=== PATIENT | male | born 1960 | race Caucasian/White ===

== ENCOUNTER 2023-02-02 15:52 | Inpatient (IN) | payer OTHER ==
[~2023-02-02] VITALS: Ht 180 cm; Wt 120.0 kg
[2023-02-02 16:19] LABS: ALBUMIN 4.3 GM/DL (3.2-4.5); BASOPHILS % (AUTO) 1 % (0-10); EOSINOPHILS # (AUTO) 0.1 10^3/uL (0.0-0.3); EOSINOPHILS % (AUTO) 2 % (0-10); HEMATOCRIT 47 % (40-54); HEMOGLOBIN 16.2 g/dL (13.3-17.7); LYMPHOCYTES # (AUTO) 1.5 10^3/uL (1.0-4.0); LYMPHOCYTES % (AUTO) 21 % (12-44); MEAN CORPUSCULAR HEMOGLOBIN 31 pg (25-34); MEAN CORPUSCULAR HGB CONC 34 g/dL (32-36); MEAN CORPUSCULAR VOLUME 90 fL (80-99); MEAN PLATELET VOLUME 9.8 fL (9.0-12.2); MONOCYTES # (AUTO) 0.8 10^3/uL (0.0-1.0); MONOCYTES % (AUTO) 12 % (0-12); NEUTROPHILS # (AUTO) 4.7 10^3/uL (1.8-7.8); NEUTROPHILS % (AUTO) 65 % (42-75); PLATELET COUNT 223 10^3/uL (130-400); WHITE BLOOD COUNT 7.2 10^3/uL (4.3-11.0)
[2023-02-02 16:20] LABS: CHLORIDE 105 MMOL/L (98-107); POTASSIUM 4.1 MMOL/L (3.6-5.0); SODIUM 136 MMOL/L (135-145)
[2023-02-02 16:21] LABS: CALCIUM 9.2 MG/DL (8.5-10.1)
--- NOTE | 2023-02-02 16:21 | ED Cardiac General ---
History of Present Illness General Chief Complaint: Chest Pain Stated Complaint: CHEST PAIN Source: patient Exam Limitations: no limitations History of Present Illness Date Seen by Provider: Feb 02, 2023 Time Seen by Provider: 16:19 Initial Comments Patient is a 62-year-old male with a history of COPD, coronary artery disease, hypertension, previous smoker who presents to ED for shortness of breath, chest tightness. Patient states he was seen in Dr. Riggs today. He was sent over to ED for chest pain and shortness of breath. Patient states he has been experiencing chest pain shortness of breath for several months usually with exertion. 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 He gets winded after a few steps which is abnormal for him. Patient does use 2 inhalers for his COPD and was sent in a third inhaler today by his service greeter. Does not wear oxygen at home. Does report a mild cough over the past week. Denies of any increased leg swelling or redness. Patient is not on a diuretic. Denies blood thinner use. Denies of any current chest pain or shortness of breath while sitting. Denies fever, chills, sore throat, headache, dizziness, visual changes. 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: Yes Allergies and Home Medications Allergies Coded Allergies: No Known Drug Allergies (Unverified , 02/02/23) Patient Home Medication List Home Medication List Reviewed: Yes ALPRAZolam (ALPRAZolam) 0.25 Mg Tablet, 0.5 MG PO BID Prescribed by: Anahy Peñaloza on 02/02/232121 Last Action: New Order Apixaban (Eliquis) 2.5 Mg Tablet, 2.5 MG PO BID Prescribed by: Anahy Peñaloza on 02/02/232121 Last Action: New Order Aspirin (Aspirin) 81 Mg Tab.chew, 81 MG PO DAILY Prescribed by: Anahy Peñaloza on 02/02/232121 Last Action: New Order Atorvastatin Calcium (Atorvastatin Calcium) 40 Mg Tablet, 20 MG PO DAILY Prescribed by: Anahy Peñaloza on 02/02/232121 Last Action: New Order Carvedilol (Carvedilol) 12.5 Mg Tablet, 6.25 MG PO BID Prescribed by: Anahy Peñaloza on 02/02/232121 Last Action: New Order Citalopram Hydrobromide (Citalopram HBr) 30 Mg Capsule, 15 MG PO BID Prescribed by: Anahy Peñaloza on 02/02/232121 Last Action: New Order Lisinopril (Lisinopril) 10 Mg Tablet, 6.25 MG PO DAILY Prescribed by: Anahy Peñaloza on 02/02/232121 Last Action: New Order Discontinued Medications ALPRAZolam (ALPRAZolam) 0.25 Mg Tablet, (Reported) Discontinued Reason: Prescription changed Entered as Reported by: LESLIE ANDERSON on 02/02/231621 Last Action: Reviewed Aspirin (Aspirin) 81 Mg Tab.chew, 81 MG PO DAILY Discontinued Reason: Prescription changed Prescribed by: Anahy Peñaloza on 02/02/232102 Last Action: Reviewed Lisinopril (Lisinopril) 10 Mg Tablet, 10 MG PO DAILY, (Reported) Discontinued Reason: Prescription changed Entered as Reported by: LESLIE ANDERSON on 02/02/231621 Last Action: Reviewed [Rubio Baby Asprin] Discontinued Reason: Duplicate Order Prescribed by: Anahy Peñaloza on 02/02/231930 Last Action: Discontinued [Bayers Asprin] Discontinued Reason: No Longer Taking Prescribed by: Anahy Peñaloza on 02/02/231930 Last Action: Discontinued Review of Systems Review of Systems Constitutional: No chills, No diaphoresis, No malaise, No weakness EENTM: No Double Vision Respiratory: Denies No Symptoms Reported; Cough, Shortness of Air Cardiovascular: Chest Pain Gastrointestinal: Denies Abdominal Pain, Denies Diarrhea, Denies Nausea, Denies Vomiting Genitourinary: Denies Burning, Denies Discharge Musculoskeletal: No back pain Skin: No change in color, No change in hair/nails All Other Systems Reviewed Negative Unless Noted: Yes Past Rfdnpmn-Unbbfk-Refekx Hx Patient Social History Tobacco Use?: No Smoking Status: Former Smoker Substance use?: No Alcohol Use?: Yes Alcohol type: Beer Alcohol Frequency: Daily Pt feels they are or have been: No Past Medical History Surgery/Hospitalization HX: CABG, DEPRSSION, HIGH CHOL, HTN Physical Exam Vital Signs Vital Signs - First Documented 02/02/23 02/02/23 16:03 18:22 Temp 36.8 Pulse 73 Resp 30 B/P (MAP) 147/96 (113) Pulse Ox 94 O2 Delivery Room Air O2 Flow Rate 2.00 Capillary Refill : Less Than 3 Seconds Height, Weight, BMI Height: '" Weight: lbs. oz. 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 Skin: Normal Color, Warm/Dry Progress/Results/Core Measures Results/Orders Lab Results Laboratory Tests Test 02/02/23 15:57 02/02/23 18:22 Range/Units White Blood Count 7.2 4.3-11.0 10^3/uL Red Blood Count 5.29 4.30-5.52 10^6/uL Hemoglobin 16.2 13.3-17.7 g/dL Hematocrit 47 40-54 % Mean Corpuscular Volume 90 80-99 fL Mean Corpuscular Hemoglobin 31 25-34 pg Mean Corpuscular Hemoglobin Concent 34 32-36 g/dL Red Cell Distribution Width 12.5 10.0-14.5 % Platelet Count 223 130-400 10^3/uL Mean Platelet Volume 9.8 9.0-12.2 fL Immature Granulocyte % (Auto) 1 % Neutrophils (%) (Auto) 65 42-75 % Lymphocytes (%) (Auto) 21 12-44 % Monocytes (%) (Auto) 12 0-12 % Eosinophils (%) (Auto) 2 0-10 % Basophils (%) (Auto) 1 0-10 % Neutrophils # (Auto) 4.7 1.8-7.8 10^3/uL Lymphocytes # (Auto) 1.5 1.0-4.0 10^3/uL Monocytes # (Auto) 0.8 0.0-1.0 10^3/uL Eosinophils # (Auto) 0.1 0.0-0.3 10^3/uL Basophils # (Auto) 0.0 0.0-0.1 10^3/uL Immature Granulocyte # (Auto) 0.1 0.0-0.1 10^3/uL Prothrombin Time 12.9 12.2-14.7 SEC INR Comment 0.9 0.8-1.4 Activated Partial Thromboplast Time 33 24-35 SEC Sodium Level 136 135-145 MMOL/L Potassium Level 4.1 3.6-5.0 MMOL/L Chloride Level 105 98-107 MMOL/L Carbon Dioxide Level 22 21-32 MMOL/L Anion Gap 9 5-14 MMOL/L Blood Urea Nitrogen 18 7-18 MG/DL Creatinine 0.92 0.60-1.30 MG/DL Estimat Glomerular Filtration Rate 95 BUN/Creatinine Ratio 20 Glucose Level 86 70-105 MG/DL Calcium Level 9.2 8.5-10.1 MG/DL Corrected Calcium 9.0 8.5-10.1 MG/DL Magnesium Level 2.1 1.6-2.4 MG/DL Total Bilirubin 0.9 0.1-1.0 MG/DL Aspartate Amino Transf (AST/SGOT) 24 5-34 U/L Alanine Aminotransferase (ALT/SGPT) 39 0-55 U/L Alkaline Phosphatase 54 40-136 U/L Myoglobin 31.8 10.0-92.0 NG/ML Troponin I < 0.028 <0.028 NG/ML B-Type Natriuretic Peptide 16.7 <100.0 PG/ML Total Protein 7.8 6.4-8.2 GM/DL Albumin 4.3 3.2-4.5 GM/DL Lipase 23 8-78 U/L Influenza Type A (RT-PCR) Not Detected Not Detecte Influenza Type B (RT-PCR) Not Detected Not Detecte SARS-CoV-2 RNA (RT-PCR) Detected H Not Detecte My Orders Orders - HAL SANTIAGO PA Cbc And Automated Diff (02/02/23 16:09) Magnesium (02/02/23 16:09) Chest 1 View, Ap/Pa Only (02/02/23 16:09) Ekg Tracing (02/02/23 16:09) Comprehensive Metabolic Panel (02/02/23 16:09) Myoglobin Serum (02/02/23 16:09) Protime With Inr (02/02/23 16:09) Partial Thromboplastin Time (02/02/23 16:09) O2 (02/02/23 16:09) Monitor-Rhythm Ecg Trace Only (02/02/23 16:09) Lipid Panel (02/03/23 06:00) Ed Iv/Invasive Line Start (02/02/23 16:09) Lipase (02/02/23 16:09) Bnp Que (02/02/23 16:09) Troponin I Que (02/02/23 16:09) Covid 19 Inhouse Test (02/02/23 17:49) Influenza A And B By Pcr (02/02/23 17:49) Methylprednisolone Sod Succ (Methylpredn (02/02/23 18:00) Ipratropium/Albuterol Inh Soln (Ipratrop (02/02/23 18:00) Svn Small Volume Nebulizer (02/02/23 17:49) Aspirin Chewable Tablet (Aspirin Chewabl (02/02/23 18:00) Enoxaparin Injection (Enoxaparin Injecti (02/02/23 18:00) Ed Admission (Communication) (02/02/23 18:19) Medications Given in ED Vital Signs/I&O 02/02/23 02/02/23 16:03 18:22 Temp 36.8 Pulse 73 Resp 30 B/P (MAP) 147/96 (113) Pulse Ox 94 O2 Delivery Room Air Nasal Cannula O2 Flow Rate 2.00 Comment Sinus rhythm, low QRS voltage in precordial leads, possible right ventricular conduction delay, possible inferior myocardial infarction of indeterminate age, 80 bpm, QRS duration 93 MS, QTc 376 MS. Departure Communication (PCP) Reviewed previous ER visits, H&P, lab testing. Differential diagnoses ACS, CHF, COPD, pneumonia, viral syndrome. Patient was sent over by his service greeter Dr. Riggs for further cardiac work-up. HI patient. Does not currently follow a ship/rec/doc control. Reports experiencing shortness of breath and chest tightness with exertion fro several months and appears to be worsen. He states when he walks a few steps he gets winded. 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 Patient currently on 2 different types of inhalers. Was added a third today but was sent to the ED concerning for this chest pain which his service greeter thought could be associated to some of his symptoms. Cardiologic work-up was initiated. Initially oxygen was around the lower 90s on room air. Did drop down into the upper 80s and was placed on 2 L for more comfort. Diminished lung sounds did receive Solu-Medrol and a DuoNeb breathing treatment with very minimal improvement. Chest x-ray was ordered which concerning for COPD pattern without consolidation or pleural effusion. No evidence of pneumonia, mediastinal widening. Patient CBC and CMP grossly unremarkable. Normal troponin and BNP. Due to his cardiac risk factors elevated heart score 4 and presentation concerning for cardiac component. I did add COVID and influenza due to his cough for the past week did test positive. I did discussed patient with ship/rec/doc control Dr. Bal who recommended n.p.o. after midnight and Lovenox 1 mg/kg and baby aspirin. Patient was discussed with Dr. Izaguirre who agreed to accept the patient for cardiac stepdown. Due to length of symptoms patient is not a candidate for treatment for COVID. Symptoms may be multifactorial including coronary artery disease versus COPD vs covid. Further cardiac work-up Impression Primary Impression: Chest pain on exertion Additional Impressions: COPD (chronic obstructive pulmonary disease) Hypoxia COVID-19 Disposition: 09 ADMITTED INPATIENT Condition: Stable Admissions Decision to Admit Reason: Admit from ER (General) Decision to Admit/Date: Feb 02, 2023 Time/Decision to Admit Time: 17:57 Departure-Patient Inst. Scripts Aspirin (Aspirin) 81 Mg Tab.chew 81 MG PO DAILY for 7 Days, #1 TAB Prov: ABEBE NOLASCO MD 02/02/23 Lisinopril (Lisinopril) 10 Mg Tablet 6.25 MG PO DAILY for Blood Pressure for 7 Days, #1 TAB Prov: ABEBE NOLASCO MD 02/02/23 ALPRAZolam (ALPRAZolam) 0.25 Mg Tablet 0.5 MG PO BID for 7 Days, #1 TAB Prov: ABEBE NOLASCO MD 02/02/23 Apixaban (Eliquis) 2.5 Mg Tablet 2.5 MG PO BID, #1 TAB Prov: ABEBE NOLASCO MD 02/02/23 Citalopram Hydrobromide (Citalopram HBr) 30 Mg Capsule 15 MG PO BID for 7 Days, #1 TAB Prov: ABEBE NOLASCO MD 02/02/23 Carvedilol (Carvedilol) 12.5 Mg Tablet 6.25 MG PO BID for 7 Days, #1 TAB Prov: ABEBE NOLASCO MD 02/02/23 Atorvastatin Calcium (Atorvastatin Calcium) 40 Mg Tablet 20 MG PO DAILY for 7 Days, #1 TAB Prov: ABEBE NOLASCO MD 02/02/23 HAL SANTIAGO Feb 02, 2023 16:21
[2023-02-02 16:22] LABS: GLUCOSE 86 MG/DL (70-105); TOTAL PROTEIN 7.8 GM/DL (6.4-8.2)
[2023-02-02] MEDS ORDERED: ALPR0.254 (16:22)
[2023-02-02] MEDS ORDERED: LISI10TA25 PO ×3 (16:22→21:22)
[2023-02-02 16:23] LABS: CARBON DIOXIDE 22 MMOL/L (21-32)
[2023-02-02] MEDS ORDERED: CITA30CA PO ×2 (16:23→21:22)
[2023-02-02] MEDS ORDERED: CARV12.53 PO ×2 (16:23→21:22)
[2023-02-02] MEDS ORDERED: ATOR40TA70 PO ×2 (16:23→21:22)
[2023-02-02 16:24] LABS: BILIRUBIN,TOTAL 0.9 MG/DL (0.1-1.0)
[2023-02-02 16:25] LABS: ALKALINE PHOSPHATASE 54 U/L (40-136); CREATININE SERUM 0.92 MG/DL (0.60-1.30); GFR ESTIMATED 95
[2023-02-02 16:26] LABS: BUN/CREATININE RATIO 20
[2023-02-02 16:28] LABS: ALANINE AMINOTRANSFERASE 39 U/L (0-55); MAGNESIUM 2.1 MG/DL (1.6-2.4)
[2023-02-02 16:29] LABS: LIPASE 23 U/L (8-78)
[2023-02-02 16:35] LABS: INR 0.9 (0.8-1.4); PROTHROMBIN TIME PATIENT 12.9 SEC (12.2-14.7)
--- NOTE | 2023-02-02 16:59 | Diagnostic Imaging Report ---
HISTORY: Chest pain. COMPARISON: None. TECHNIQUE: Frontal view of the chest. FINDINGS: Lung volumes are large and the upper lungs are hyperlucent. There is no large effusion or pneumothorax. No consolidation is seen. The cardiac silhouette is normal in size for portable technique. Sternotomy wires and post-CABG changes are seen. Multiple malleable plates are noted in the right ribs. IMPRESSION: Findings of chronic obstructive disease with no acute pulmonary abnormality seen. Dictated by: Dictated on workstation # [id number]
[2023-02-02] MEDS ORDERED: methylPREDNISolone INJ 125 MG VIAL IVP ONE (18:00)
[2023-02-02] MEDS ORDERED: ENOXAPARIN 100 MG/1 ML SYRINGE SC ONE (18:00)
[2023-02-02] MEDS ORDERED: RT-Ipratropium/Albuterol NEB 3 ML VIAL INH ONE (18:00)
[2023-02-02] MEDS ORDERED: ASPIRIN 81 MG CHEWABLE TABLET PO ONE (18:00)
[2023-02-02] MEDS ORDERED: APIX2.5T PO ×2 (19:30→21:22)
[2023-02-02] MEDS ORDERED: ASPIRIN ×2 (19:31)
[2023-02-02] MEDS ORDERED: [UNRECOGNIZED DRUG - OTHER] (19:31)
[2023-02-02 19:46] VITALS: BP 144/88
[2023-02-02] MEDS ORDERED: ONDANSETRON INJECTION 4 MG/2 ML (SDV) IV PRN (20:15)
[2023-02-02] MEDS ORDERED: CALCIUM CARBONATE 500 MG CHEW TABLET PO PRN (20:15)
[2023-02-02] MEDS ORDERED: ACETAMINOPHEN 325 MG TABLET PO PRN (20:15)
[2023-02-02 20:51] VITALS: BP 144/88
[2023-02-02] MEDS ORDERED: RT-ALBUTEROL SULF 2.5 MG/3 ML PRE-MIX VIAL INH PRN (21:00)
[2023-02-02] MEDS ORDERED: ALPR0.254 PO ×2 (21:00→21:22)
[2023-02-02] MEDS ORDERED: RT-Ipratropium/Albuterol NEB 3 ML VIAL ONE (21:02)
[2023-02-02] MEDS ORDERED: ASPI-999 PO ×3 (21:03→21:22)
[2023-02-02] MEDS ORDERED: RT-Ipratropium/Albuterol NEB 3 ML VIAL INH SCH (22:00)
[2023-02-02] MEDS: CITALOPRAM 10 MG TABLET PO SCH (22:03)
[2023-02-02] MEDS: carvediloL 6.25 MG TABLET PO SCH (22:03)
[2023-02-02] MEDS: ALPRAZolam 0.5 MG TABLET PO SCH (22:03)
[2023-02-02] MEDS: APIXABAN 5 MG TABLET PO SCH (22:03)
[2023-02-02 22:19] VITALS: BP 159/99
[2023-02-02] MEDS: RT-ALBUTEROL HFA 8.5 GM INHALER IH SCH (22:19)
[2023-02-03] VITALS (8 sets, daily range): BP systolic 128–141; BP diastolic 69–99
[2023-02-03] MEDS: RT-ALBUTEROL HFA 8.5 GM INHALER IH SCH ×6 (02:21→22:36)
[2023-02-03 04:18] LABS: HEMATOCRIT 47 % (40-54); HEMOGLOBIN 15.7 g/dL (13.3-17.7); MEAN CORPUSCULAR HEMOGLOBIN 30 pg (25-34); MEAN CORPUSCULAR HGB CONC 34 g/dL (32-36); MEAN CORPUSCULAR VOLUME 90 fL (80-99); MEAN PLATELET VOLUME 9.9 fL (9.0-12.2); PLATELET COUNT 217 10^3/uL (130-400); WHITE BLOOD COUNT 6.3 10^3/uL (4.3-11.0)
[2023-02-03 04:37] LABS: CHLORIDE 105 MMOL/L (98-107); POTASSIUM 4.6 MMOL/L (3.6-5.0); SODIUM 135 MMOL/L (135-145)
[2023-02-03 04:38] LABS: CALCIUM 8.9 MG/DL (8.5-10.1)
[2023-02-03 04:39] LABS: GLUCOSE 164 MG/DL (70-105); TRIGLYCERIDES 72 MG/DL (<150); VLDL CHOLESTEROL 14 MG/DL (5-40)
[2023-02-03 04:41] LABS: CARBON DIOXIDE 22 MMOL/L (21-32)
[2023-02-03 04:43] LABS: CREATININE SERUM 0.84 MG/DL (0.60-1.30); GFR ESTIMATED 99
[2023-02-03 04:44] LABS: BUN/CREATININE RATIO 23; CHOLESTEROL 156 MG/DL (< 200)
[2023-02-03 04:45] LABS: HDL CHOLESTEROL 45 MG/DL (40-60)
[2023-02-03] MEDS: predniSONE 20 MG TABLET PO SCH (07:57)
[2023-02-03] MEDS: PANTOPRAZOLE 40 MG TABLET PO SCH (07:57)
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
[2023-02-03] MEDS: APIXABAN 5 MG TABLET PO SCH ×2 (08:51→20:07)
[2023-02-03] MEDS: ALPRAZolam 0.5 MG TABLET PO SCH ×2 (08:52→20:07)
[2023-02-03] MEDS: carvediloL 6.25 MG TABLET PO SCH ×2 (08:52→20:07)
[2023-02-03] MEDS: CITALOPRAM 10 MG TABLET PO SCH ×2 (08:52→20:07)
--- NOTE | 2023-02-03 09:52 | History & Physical-Hospitalist ---
History of Present Illness HPI/Chief Complaint Pt is a 62yoCM with a PMH of COPD, CAD s/p CABG, HTN, HLD who presented to the ER due to MERIDA and chest pain. He has had progressive MERIDA and Chest pain with exertion and has been seeing his review manager for this and had multiple inhalers added to his regimen without improvement. He saw his review manager yesterday and was advised to go to the ER. He reported to the ER that symptoms worsened over the past week or so but upon asking him that this morning he was unable to clarify any date of worsening symptoms over than "over the past few months." Troponin was negative in the ER but given his history decision was made to admit. Troponin this morning is negative as well. He was foundt o have COVID as well and is requiring a couple leaders of oxygen to maintain his sats. This morning he couples of anxiety and "needing to get everything" done before he leaves but he is also asking to DC today if able. Source: patient Date Seen 02/03/23 Time Seen by a Provider: 07:45 Attending Physician No,Local Physician PCP Admitting Physician: Yves Scott MD Attending Physician: Yves Scott MD Referring Physician Date of Admission Feb 02, 2023 at 18:50 Home Medications & Allergies Home Medications Reviewed patient Home Medication Reconciliation performed by pharmacy medication reconciliations administrative support technician and/or nursing. Patients Allergies have been reviewed. Allergies Allergies Coded Allergies No Known Drug Allergies (Rvpheaukiw55/15/23) Past Mfudhjs-Eulkac-Dgnjnb Hx Patient Social History Marrital Status: Employed/Student: retired Tobacco Use?: No Smoking Status: Former Smoker Use of E-Cig and/or Vaping dev: Unable to obtain Substance use?: No Alcohol Use?: Yes Alcohol type: Beer Additional alcohol type: 6 a day Alcohol Frequency: Daily Additional Alcohol Comments: 6 PACK DAILY Pt feels they are or have been: No Immunizations Up To Date Tetanus Booster (TDap): Unknown Current Status Advance Directives: Unable to obtain Communicates: Verbally Primary Language: Azerbaijani Preferred Spoken Language: Azerbaijani Is interpretation needed?: No Sensory deficits: Vision impairment Additional sensory deficits: glasses on Implanted or [employer] D: CPAP, Stents Family Medical History No Pertinent Family Hx Review of Systems Constitutional: see HPI Physical Exam Physical Exam Vital Signs Vital Signs - First Documented 02/02/23 02/02/23 02/02/23 16:03 18:22 20:51 Temp 36.8 Pulse 73 Resp 30 B/P (MAP) 147/96 (113) Pulse Ox 94 O2 Delivery Room Air O2 Flow Rate 2.00 FiO2 28 Capillary Refill : Less Than 3 Seconds Height, Weight, BMI Height: '" Weight: lbs. oz. kg; 38.48 BMI Method: General Appearance: No Apparent Distress, Anxious, Obese Respiratory: Lungs Clear, No Accessory Muscle Use, No Respiratory Distress; No Wheezing Cardiovascular: Regular Rate, Rhythm, No Murmur Gastrointestinal: Normal Bowel Sounds, Non Tender, Soft Neurologic/Psychiatric: Alert, Oriented x3 Results Results/Procedures Labs Laboratory Tests 02/02/23 15:57 02/03/23 03:44 Patient resulted labs reviewed. Imaging: Reviewed Imaging Report [facility] [place], [place] NAME: ZACH KUHN [facility] REC#: [id number] PT STATUS: REG ER : 1960 PHYSICIAN: HAL SANTIAGO ADMIT DATE: 02/02/23/ER Signed Date of Exam:02/02/23 CHEST 1 VIEW, AP/PA ONLY HISTORY: Chest pain. COMPARISON: None. TECHNIQUE: Frontal view of the chest. FINDINGS: Lung volumes are large and the upper lungs are hyperlucent. There is no large effusion or pneumothorax. No consolidation is seen. The cardiac silhouette is normal in size for portable technique. Sternotomy wires and post-CABG changes are seen. Multiple malleable plates are noted in the right ribs. IMPRESSION: Findings of chronic obstructive disease with no acute pulmonary abnormality seen. Dictated by: Dictated on workstation # [id number] Dict: 02/02/23 1656 Trans: 02/02/231715 [id number] Interpreted by: AMAYA JURADO MD Electronically signed by: AMAYA JURADO MD 02/02/236 Assessment/Plan Admission Diagnosis Acute hypoxic respiratory failure Admission Status: Inpatient Order (span 2 midnights) Reason for Inpatient Admission: see below Assessment and Plan Acute hypoxic respiratory failure COVID19 COPD Exacerbation Continue steroids Likely outside the window for Paxlovid if 1 week ago is true onset of symptoms MAT protocol Wean oxygen as able Continue home inhalers when med rec done CAD s/p CABG Chest pain HLD HTN Troponin negative x2 Cardiology consulted, appreciate recs Telemetry Unable to get stress test while admitted Will try and get records Continue home meds Anxiety/Depression Continue home meds DVT ppx: Eliquis Clinical Quality Measures AMI/AHF: ASA po Prior to arrival: Yes YVES SCOTT MD Feb 03, 2023 09:52
[2023-02-03] MEDS ORDERED: ASPI-1238 PO (16:16)
[2023-02-03] MEDS ORDERED: FLUT1DIS26 IH (16:16)
[2023-02-03] MEDS ORDERED: CITA40TA13 PO (16:16)
[2023-02-03] MEDS ORDERED: ATOR40TA70 PO (16:16)
[2023-02-03] MEDS ORDERED: RT-ALBUINH INH (16:16)
[2023-02-03] MEDS ORDERED: CARV12.53 PO (16:16)
[2023-02-03] MEDS ORDERED: APIX5TAB PO (16:16)
[2023-02-03] MEDS ORDERED: ALPR0.254 PO (16:16)
[2023-02-03] MEDS ORDERED: LISI10TA25 PO (16:16)
[2023-02-04] MEDS: RT-ALBUTEROL HFA 8.5 GM INHALER IH SCH ×6 (02:54→21:23)
[2023-02-04 03:39] VITALS: BP 143/89
[2023-02-04] MEDS: PANTOPRAZOLE 40 MG TABLET PO SCH (05:48)
[2023-02-04] MEDS: predniSONE 20 MG TABLET PO SCH (05:48)
[2023-02-04 08:01] VITALS: BP 135/88
[2023-02-04] MEDS: ALPRAZolam 0.5 MG TABLET PO SCH ×2 (08:41→20:51)
[2023-02-04] MEDS: carvediloL 6.25 MG TABLET PO SCH ×2 (08:41→20:51)
[2023-02-04] MEDS: CITALOPRAM 10 MG TABLET PO SCH ×2 (08:41→20:51)
[2023-02-04] MEDS: APIXABAN 5 MG TABLET PO SCH ×2 (08:41→20:51)
--- NOTE | 2023-02-04 10:03 | Pulmonary Consultation ---
History of Present Illness History of Present Illness Date Seen by Provider: Feb 04, 2023 Time Seen by Provider: 10:01 Reason for Visit: Dyspnea History of Present Illness Patient is a 62 y/o M hx of COPD, CAD, HTN and HLD, s/p CABG x 5 last done in 2013 who presented to his PCP with c/o worsening SOB and was sent to ED for workup of chest pain. In ER labs notable for positive COVID-19 otherwise relatively unremarkable. CXR suggestive of chronic COPD however otherwise no new infiltrates. Cards consulted re:cardiac hx. Pt reports SOB has been ongoing for months and has never been seen by pulmonary in past. Denies any hx of DVT/PE. No formal PFTs and was to be done as outpatient. Allergies and Home Medications Allergies Coded Allergies: No Known Drug Allergies (Unverified , 02/02/23) Home Medications ALPRAZolam 0.25 Mg Tablet, 0.5 MG PO BID, (Reported) TAKES 2 (0.25MG) TABS Albuterol Sulfate 1 Puff Puff, 1 PUFF INH Q6H PRN for SHORTNESS OF BREATH, (Reported) Apixaban 5 Mg Tablet, 5 MG PO BID, (Reported) Aspirin 81 Mg Tablet.dr, 81 MG PO DAILY, (Reported) Atorvastatin Calcium 40 Mg Tablet, 20 MG PO HS, (Reported) TAKES OF A 40MG TAB Carvedilol 12.5 Mg Tablet, 6.25 MG PO BID, (Reported) TAKES OF A 12.5MG TAB Citalopram Hydrobromide 40 Mg Tablet, 20 MG PO DAILY, (Reported) TAKES OF A 40MG TAB Fluticasone/Salmeterol 250 Mcg-50 Mcg/Dose Blst.w.dev, 1 EACH IH BID, (Reported) Lisinopril 10 Mg Tablet, 5 MG PO DAILY, (Reported) TAKES OF A 10MG TAB Past Medical/Social/Family Hx Patient Social History Marrital Status: Employed/Student: retired Tobacco Use?: No Smoking Status: Former Smoker Use of E-Cig and/or Vaping dev: Unable to obtain Substance use?: No Alcohol Use?: Yes Alcohol type: Beer Additional alcohol type: 6 a day Alcohol Frequency: Daily 6 PACK DAILY Pt stated abuse/neglect: No Immunizations Up To Date Influenza Vaccine Up-to-Date: No; Not Current Tetanus Booster (TDap): Unknown Current Status Advance Directives: Unable to obtain Communicates: Verbally Primary Language: Afghan Preferred Spoken Language: Afghan Is interpretation needed?: No Sensory deficits: Vision impairment Additional sensory deficits: glasses on Implanted or Applied Medical D: CPAP, Stents Review of Systems Constitutional: see HPI Sepsis Event Evaluation Height, Weight, BMI Height: '" Weight: lbs. oz. kg; 38.48 BMI Method: Exam Exam Patient acknowledged, consented, and participated in this virtual visit which was conducted using real time audio/video Vital Signs Date Time Temp Pulse Resp B/P (MAP) Pulse Ox O2 Delivery O2 Flow Rate FiO2 02/04/23 09:00 Nasal Cannula 2.00 02/04/23 08:01 36.5 70 20 135/88 (104) 96 Nasal Cannula 2.00 02/04/23 07:35 94 Nasal Cannula 2.00 02/04/23 03:39 36.7 75 16 143/89 (107) 95 NIV Bilevel 02/04/23 02:54 74 16 95 30.00 02/03/23 23:01 36.8 77 20 134/72 (92) 97 NIV CPAP 02/03/23 22:45 88 21 95 30.00 02/03/23 22:37 94 Nasal Cannula 2.00 02/03/23 20:00 Nasal Cannula 2.00 02/03/23 19:26 36.6 78 20 131/75 (93) 94 Nasal Cannula 2.00 02/03/23 19:06 02/03/23 18:58 93 Nasal Cannula 2.00 02/03/23 16:24 36.7 84 22 130/69 (89) 96 Nasal Cannula 2.00 02/03/23 15:36 91 Nasal Cannula 2.00 02/03/23 13:00 82 02/03/23 12:00 36.4 77 18 128/88 (101) 91 Nasal Cannula 2.00 02/03/23 11:13 93 Nasal Cannula 2.00 I & O 02/04/23 06:59 Intake Total 870 ml Balance 870 ml Height & Weight Height: '" Weight: lbs. oz. kg; 38.48 BMI Method: General Appearance: No Apparent Distress, Anxious, Obese HEENT: PERRL/EOMI, TMs Normal, Normal ENT Inspection, Pharynx Normal Neck: Full Range of Motion, Normal Inspection, Non Tender, Supple Respiratory: Lungs Clear, No Accessory Muscle Use, No Respiratory Distress; No Wheezing Cardiovascular: Regular Rate, Rhythm, No Murmur Capillary Refill: Less Than 3 Seconds Neurologic/Psychiatric: Alert, Oriented x3 Skin: Normal Color, Warm/Dry Results Lab Laboratory Tests 02/02/23 15:57 02/03/23 03:44 Assessment/Plan Assessment/Plan Patient is a 62 y/o M hx of COPD, CAD, HTN and HLD, s/p CABG x 5 last done in 2013 who presented to his PCP with c/o worsening SOB and was sent to ED for workup of chest pain. COPD: Unclear severity, no PFTs in chart. Patient states he has never had formal breathing tests performed however given imaging shows chronic emphysematous changes likely severe COPD. -Will start on duoneb treats and continue prednisone burst -Will obtain CT chest PE given history of chest heaviness. Low likelihood patient with CVT/PE however given chest heaviness will obtain imaging to r/o underlying CTE disease. -Explained to patient at length that further workup will need to be done as outpatient when not with active infection COVID: Pt unsure of when he started having symptoms. -Given normal labs will start on Remdesvir (Pharmacy to dose) -Out of window for pavloid BRIGIDA VAZQUEZ MD Feb 04, 2023 10:03
[2023-02-04] MEDS ORDERED: REMDESIVIR IV ONE (10:30)
[2023-02-04] MEDS ORDERED: NS IV ONE (10:30)
--- NOTE | 2023-02-04 10:40 | Progress Note - Hospitalist ---
Subjective HPI/CC On Admission Date Seen by Provider: Feb 04, 2023 Pt is a 62yoCM with a PMH of COPD, CAD s/p CABG, HTN, HLD who presented to the ER due to MERIDA and chest pain. He has had progressive MERIDA and Chest pain with exertion and has been seeing his undercutter for this and had multiple inhalers added to his regimen without improvement. He saw his undercutter yesterday and was advised to go to the ER. He reported to the ER that symptoms worsened over the past week or so but upon asking him that this morning he was unable to clarify any date of worsening symptoms over than "over the past few months." Troponin was negative in the ER but given his history decision was made to admit. Troponin this morning is negative as well. He was foundt o have COVID as well and is requiring a couple leaders of oxygen to maintain his sats. This morning he couples of anxiety and "needing to get everything" done before he leaves but he is also asking to DC today if able. Subjective/Events-last exam Pt reports feeling about the same today. Objective Exam Vital Signs Vital Signs Date Time Temp Pulse Resp B/P (MAP) Pulse Ox O2 Delivery O2 Flow Rate FiO2 02/04/23 09:00 Nasal Cannula 2.00 02/04/23 08:01 36.5 70 20 135/88 (104) 96 02/02/23 21:11 28 Capillary Refill : Less Than 3 Seconds General Appearance: No Apparent Distress, WD/WN, Anxious, Obese Respiratory: Lungs Clear, No Respiratory Distress Cardiovascular: Regular Rate, Rhythm, No Murmur Gastrointestinal: Normal Bowel Sounds, Soft Neurologic/Psychiatric: Alert, Oriented x3 Results/Procedures Lab Patient resulted labs reviewed. Imaging: Reviewed Imaging Report Assessment/Plan Assessment and Plan Assess & Plan/Chief Complaint Acute hypoxic respiratory failure COVID19 COPD Exacerbation Continue steroids Likely outside the window for Paxlovid if 1 week ago is true onset of symptoms MAT protocol Wean oxygen as able Continue home inhalers when med rec done PT Attempt Pulm consult if able CAD s/p CABG Chest pain HLD HTN Troponin negative x2 Cardiology consulted, appreciate recs Telemetry Unable to get stress test while admitted Will try and get records Continue home meds Anxiety/Depression Continue home meds DVT ppx: Eliquis Clinical Quality Measures AMI/AHF: ASA po Prior to arrival: Yes YVES SCOTT MD Feb 04, 2023 10:40
[2023-02-04] MEDS ORDERED: HOLD METFORMIN - RECEIVED CONTRAST 20 ML VIAL IV SCH (10:45)
[2023-02-04] MEDS ORDERED: NS 100 ML (IVPB) BAG IV ONE (10:45)
[2023-02-04] MEDS ORDERED: IOHEXOL 350 MG/ML 100 ML (OMNIPAQUE 350) VIAL IV ONE (10:45)
[2023-02-04 11:24] VITALS: BP 133/66
--- NOTE | 2023-02-04 11:26 | Physical Therapy Evaluation ---
PT Evaluation-General Medical Diagnosis Admission Date Feb 02, 2023 at 10:42 Medical Diagnosis: Covid Onset Date: Feb 02, 2023 Therapy Diagnosis Therapy Diagnosis: debility Precautions Precautions/Isolations: Airborne Isolation, Contact Isolation, Droplet Isolation Referral Physician: Dmitriy Reason for Referral: Evaluation/Treatment Medical History Pertinent Medical History: CAD, COPD, HTN Current History ER secondary to SOA Reviewed History: Yes Social History Home: Single Level Current Living Status: Spouse Prior Prior Level of Function SCALE: Activities may be completed with or without assistive devices. 5-Goqngyjmhj-gyjgxsl completes the activity by him/herself with no assistance from a helper. 5-Set-up or Clean-up Assistance-helper sets up or cleans up; patient completes activity. [place] assists only prior to or following the activity. 4-Supervision or Touching Assistance-helper provides verbal cues and/or touching/steadying and/or contact guard assistance as patient completes activity. Assistance may be provided throughout the activity or intermittently. 3-Partial/Moderate Assistance-helper does LESS THAN HALF the effort. [place] lifts, holds or supports trunk or limbs, but provides less than half the effort. 2-Substantial/Maximal Assistance-helper does MORE THAN HALF the effort. [place] lifts or holds trunk or limbs and provides more than half the effort. 4-Yocicebow-hyrzkh does ALL the effort. Patient does none of the effort to complete the activity. Or, the assistance of 2 or more helpers is required for the patient to complete the activity. If activity was not attempted, code reason: 7-Patient Refused. 9-Not Applicable-not attempted and the patient did not perform the activity before the current illness, exacerbation or injury. 10-Not Attempted due to Environmental Limitations-(lack of equipment, weather restraints, etc.). 88-Not Attempted due to Medical Conditions or Safety Concerns. Bed Mobility: 6 Transfers (B,C,W/C): 6 Gait: 6 Indoor Mobility (Ambulation): Independent Stairs: Independent Prior Devices Use: None PT Evaluation-Current Subjective Patient agrees to PT. Objective Patient Orientation: Normal For Age Attachments: Oxygen ROM/Strength ROM Lower Extremities bilateral LE WFL Strength Lower Extremities 5/5 grossly bilateral LE all planes Integumentary/Posture Bowel Incontinence: No Bladder Incontinence: No Posture WFL Neuromuscular (Tone, Coordination, Reflexes) grossly intact Sensory Vision: Wears Glasses Hearing: Functional Transfers Lying to Sitting/Side of Bed(Q: 6 Sit to Stand (QC): 6 Chair/Boy-it-Ukzgv Xfer(QC): 6 Gait Mode of Locomotion: Walk Anticipated Mode of Locomotion: Walk Walk 10 feet (QC): 6 Walk 50 ft with 2 Turns(QC): 6 Walk 150 ft (QC): 6 Distance: >300' Gait Assistive Device: None Comments/Gait Description safe and functional with no deviation Balance Sitting Static: Normal Sitting Dynamic: Normal Standing Static: Normal Standing Dynamic: Normal Picking up an Object (QC): 6 Assessment/Needs Patient is currently at independent LOF with all gross motor skills safely and does not require skilled PT intervention at this time. Patient instructed to ambulate PRN in room. Physician notified. Rehab Potential: Fair PT Plan Treatment/Plan Treatment Plan: Discontinue PT, goals met Treatment Duration: Feb 04, 2023 Frequency: 1 time per week Estimated Hrs Per Day: .25 hour per day Patient and/or Family Agrees t: Yes Time Time In: 1101 Time Out: 1111 DATE: Feb 04, 2023 Total Billed Treatment Time: 10 Total Billed Treatment 1 visit EVMod 10 min DANISHA ARMSTRONG PT Feb 04, 2023 11:26
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
[2023-02-04] MEDS ORDERED: RT-Ipratropium/Albuterol NEB 3 ML VIAL INH SCH (14:00)
[2023-02-04 15:56] VITALS: BP 124/82
--- NOTE | 2023-02-04 16:12 | Diagnostic Imaging Report ---
INDICATION: COVID patient with cough and worsening shortness of breath. TECHNIQUE: Post IV contrast-enhanced CT angio chest utilizes PE protocol with 3D reconstructions. All CT scans use one or more of the following dose optimizing techniques: automated exposure control, MA and/or KvP adjustment based on patient size and exam type or iterative reconstruction. FINDINGS: There are no intraluminal pulmonary arterial filling defects. There is no pulmonary arterial embolus. The thoracic aorta is nonaneurysmal. The cava is patent. No intracardiac chamber mass or thrombus. There are coronary artery atherosclerotic vascular calcifications. There is a small hiatal hernia. There is previous sternotomy and right rib plating as well as some old healed and operated left-sided rib fracture deformities, chronic. No acute chest wall pathology. No edema or pneumonia. IMPRESSION: Negative for PE. No acute infiltrate. Chronic centrilobular emphysema, greatest in the apices, and prior surgery and remote healed injuries. No acute finding. Dictated by: Dictated on workstation # [id number]
[2023-02-04 20:37] VITALS: BP_SYST 134; BP_SYST 177; BP_DIAS 67; BP_DIAS 78
[2023-02-04] MEDS: MELATONIN 3 MG TABLET PO PRN (20:51)
[2023-02-04 23:01] VITALS: BP 125/73
[2023-02-05] VITALS (7 sets, daily range): BP systolic 116–133; BP diastolic 69–89
[2023-02-05] MEDS: RT-ALBUTEROL HFA 8.5 GM INHALER IH SCH ×4 (02:19→15:06)
[2023-02-05] MEDS: PANTOPRAZOLE 40 MG TABLET PO SCH (06:16)
[2023-02-05] MEDS: predniSONE 20 MG TABLET PO SCH (06:16)
[2023-02-05] MEDS: APIXABAN 5 MG TABLET PO SCH ×2 (08:58→19:54)
[2023-02-05] MEDS: CITALOPRAM 10 MG TABLET PO SCH ×2 (08:58→19:54)
[2023-02-05] MEDS: ALPRAZolam 0.5 MG TABLET PO SCH ×2 (08:58→19:53)
[2023-02-05] MEDS: carvediloL 6.25 MG TABLET PO SCH ×2 (08:58→19:53)
--- NOTE | 2023-02-05 12:23 | Cardiology Progress Note ---
Subjective Date Seen by Provider: Feb 05, 2023 Time Seen by Provider: 12:25 Subjective/Events-last exam No complaints. Review of Systems General: No Chills, No Night Sweats, No Fatigue, No Malaise, No Appetite, No Other Exam Vital Signs Vital Signs Date Time Temp Pulse Resp B/P (MAP) Pulse Ox O2 Delivery O2 Flow Rate FiO2 02/05/23 11:25 36.7 68 20 119/71 (87) 95 Nasal Cannula 2.00 02/02/23 21:11 28 Physical Exam Alert oriented. Neck supple. Lungsdecreased breath sounds bilaterally. Heart: S1-S2, regular rhythm. Abdomen soft nontender. Extremities no edema A/P-Cardiology Admission Diagnosis Acute respiratory failure COVID-19 pneumonia Coronary artery disease Hypertension Hyperlipidemia Assessment/Plan Acute respiratory failure secondary to COVID-19 pneumonia and acute exacerbation of COPD Coronary artery disease, history of CABG x5 done in 2013. No recent cardiac work-up, he will need stress test as an outpatient Hypertension, continue home medication, monitor blood pressure Hyperlipidemia, continue Lipitor CLAUDIO MYERS MD Feb 05, 2023 12:23
--- NOTE | 2023-02-05 12:49 | Progress Note - Hospitalist ---
Subjective HPI/CC On Admission Date Seen by Provider: Feb 06, 2023 Time Seen by Provider: 12:20 Pt is a 62yoCM with a PMH of COPD, CAD s/p CABG, HTN, HLD who presented to the ER due to MERIDA and chest pain. He has had progressive MERIDA and Chest pain with exertion and has been seeing his sales and service specialist for this and had multiple inhalers added to his regimen without improvement. He saw his sales and service specialist yesterday and was advised to go to the ER. He reported to the ER that symptoms worsened over the past week or so but upon asking him that this morning he was unable to clarify any date of worsening symptoms over than "over the past few months." Troponin was negative in the ER but given his history decision was made to admit. Troponin this morning is negative as well. He was foundt o have COVID as well and is requiring a couple leaders of oxygen to maintain his sats. This morning he couples of anxiety and "needing to get everything" done before he stephanie ves but he is also asking to DC today if able. Subjective/Events-last exam Patient denies chest pain or shortness of breath. He has told staff multiple times that he just does not understand why he gets short of breath with exertion and cannot work the way he used to. He denies night sweats chills fever with reduction in nonproductive cough. Objective Exam Vital Signs Vital Signs Date Time Temp Pulse Resp B/P (MAP) Pulse Ox O2 Delivery O2 Flow Rate FiO2 02/06/23 11:16 36.5 66 20 108/73 (85) 93 Room Air 02/06/23 08:20 2.00 02/02/23 21:11 28 Capillary Refill : Less Than 3 Seconds General Appearance: No Apparent Distress, Anxious, Obese Respiratory: Chest Non Tender, Lungs Clear, Normal Breath Sounds, No Accessory Muscle Use, No Respiratory Distress Cardiovascular: Regular Rate, Rhythm, No Edema, No Gallop, No JVD, No Murmur, Normal Peripheral Pulses Extremity: Normal Inspection, Normal Range of Motion, Non Tender, No Calf Tenderness, No Pedal Edema Results/Procedures Lab Patient resulted labs reviewed. Imaging: Reviewed Imaging Report Assessment/Plan Assessment and Plan Assess & Plan/Chief Complaint 1. COVID infection without evidence for pneumonia. This is delaying his nonemergent cardiovascular work-up as he has ruled out for an acute coronary syndrome. 2. Likely significant COPD CTA of the chest revealing centrilobular emphysema without evidence for pulmonary embolism or pneumonia. 3. History of coronary artery disease discussed the symptoms or either related to progression of coronary disease with a flow-limiting lesion versus emphysema in the next step would be either nuclear medicine based stress testing or cardiac catheterization per banquet bartender. If this is unremarkable then he is likely dealing with significant COPD defer to his sales and service specialist that he just started seeing for outpatient pulmonary function testing etc. Clinical Quality Measures AMI/AHF: ASA po Prior to arrival: Yes ABEBE NOLASCO MD Feb 05, 2023 12:49
[2023-02-05] MEDS ORDERED: RT-ALBUTEROL HFA 8.5 GM INHALER IH SCH (19:00)
[2023-02-05] MEDS: MELATONIN 3 MG TABLET PO PRN (20:07)
[2023-02-06] MEDS: predniSONE 20 MG TABLET PO SCH (06:07)
[2023-02-06] MEDS: PANTOPRAZOLE 40 MG TABLET PO SCH (06:07)
[2023-02-06 07:29] VITALS: BP 127/85
[2023-02-06] MEDS ORDERED: RT-ALBUTEROL HFA 8.5 GM INHALER IH SCH (08:00)
[2023-02-06] MEDS: ALPRAZolam 0.5 MG TABLET PO SCH (08:22)
[2023-02-06] MEDS: carvediloL 6.25 MG TABLET PO SCH (08:22)
[2023-02-06] MEDS: APIXABAN 5 MG TABLET PO SCH (08:23)
[2023-02-06] MEDS: CITALOPRAM 10 MG TABLET PO SCH (08:24)
[2023-02-06 11:16] VITALS: BP 108/73
[2023-02-06] MEDS ORDERED: PRD20T PO (11:59)
--- NOTE | 2023-02-06 12:25 | Discharge Summary ---
Diagnosis/Chief Complaint Date of Admission Feb 04, 2023 at 10:42 Date of Discharge Discharge Date: Feb 06, 2023 Admission Diagnosis Acute hypoxic respiratory failure Primary Care No,Local Physician Discharge Summary Discharge Physical Exam Allergies: Coded Allergies: No Known Drug Allergies (Unverified , 02/02/23) Vitals & I&Os Vital Signs Date Time Temp Pulse Resp B/P (MAP) Pulse Ox O2 Delivery O2 Flow Rate FiO2 02/06/23 11:16 36.5 66 20 108/73 (85) 93 Room Air 02/06/23 08:20 2.00 02/02/23 21:11 28 General Appearance: No Apparent Distress, Anxious, Obese Respiratory: Lungs Clear, Normal Breath Sounds, No Accessory Muscle Use, No Respiratory Distress Cardiovascular: Regular Rate, Rhythm, No Edema, No Gallop, No JVD, No Murmur, Normal Peripheral Pulses Extremity: Normal Inspection, Normal Range of Motion, Non Tender, No Calf T enderness, No Pedal Edema Hospital Course Was the Problem List Reviewed?: Yes Pt is a 62yoCM with a PMH of COPD, CAD s/p CABG, HTN, HLD who presented to the ER due to MERIDA and chest pain. He has had progressive MERIDA and Chest pain with exertion and has been seeing his mica plate layer for this and had multiple inhalers added to his regimen without improvement. He saw his mica plate layer yesterday and was advised to go to the ER. He reported to the ER that symptoms worsened over the past week or so but upon asking him that this morning he was unable to clarify any date of worsening symptoms over than "over the past few months." Troponin was negative in the ER but given his history decision was made to admit. Troponin this morning is negative as well. He was foundt o have COVID as well and is requiring a couple leaders of oxygen to maintain his sats. This morning he couples of anxiety and "needing to get everything" done before he leaves but he is also asking to DC today if able. Patient was admitted and ruled out for an acute coronary syndrome. He had evidence for COVID infection on admission without pneumonia. CTA was performed which just revealed centrilobular emphysematous change worse in the upper lobes with no evidence for pulmonary embolism. On the day of his discharge his chest was clear he had no further chest discomfort during his hospital stay and O2 saturation was 93% on room air on the day of his discharge. We discussed the next step in his care was cardiovascular evaluation either likely nonexercise stress testing versus cardiac catheterization considering his past history of cardiovascular disease. He was told if this was unremarkable then highly likely dealing with emphysema with exertional hypoxemia to be further addressed by following up with his mica plate layer. He will continue his home medication and another 3 days of 20 mg prednisone to finish prednisone taper. After receiving permission I discussed these issues with his and inquired about a more accurate alcohol history. He is retired recently and she states if they do not get onto him he can drink a case of beer a day. We discussed need for abstinence he clearly qualifies for alcohol use disorder. She noted that when he had been given larger doses of Xanax when he goes to the emergency room he is his old self and not anxious. I discussed that this could be quite problematic and put his life at risk considering heavy alcohol consumption and they should discuss other safer options for anxiety management with his primary care provider.Patient will continue his other home medications unchanged Labs (last 24 hrs) Patient resulted labs reviewed. Imaging: Reviewed Imaging Report Discussion & Recommendations Discharge Planning: >30 minutes discharge planning Discharge Home Medications: Active Scripts Active Prednisone 20 Mg Tab 1 Tab PO DAILY 3 Days Reported Lisinopril 10 Mg Tablet 5 Mg PO DAILY TAKES OF A 10MG TAB Advair 250-50 Diskus (Fluticasone/Salmeterol) 250 Mcg-50 Mcg/Dose Blst.w.dev 1 Each IH BID Citalopram HBr (Citalopram Hydrobromide) 40 Mg Tablet 20 Mg PO DAILY TAKES OF A 40MG TAB Carvedilol 12.5 Mg Tablet 6.25 Mg PO BID TAKES OF A 12.5MG TAB Atorvastatin Calcium 40 Mg Tablet 20 Mg PO HS TAKES OF A 40MG TAB Aspirin EC (Aspirin) 81 Mg Tablet.dr 81 Mg PO DAILY Eliquis (Apixaban) 5 Mg Tablet 5 Mg PO BID ALPRAZolam 0.25 Mg Tablet 0.5 Mg PO BID TAKES 2 (0.25MG) TABS Ventolin Hfa (Albuterol Sulfate) 1 Puff Puff 1 Puff INH Q6H PRN Instructions to patient/family Please see electronic discharge instructions given to patient. Clinical Quality Measures AMI/AHF: ASA po Prior to arrival: Yes ABEBE NOLASCO MD Feb 06, 2023 12:24
[2023-02-06 15:25] VITALS: BP 108/73
== END 2023-02-06 13:20 | disposition home or self-care (01) | DRG 177 ==
LOC: ER 15:53 → CSD 18:50 → 4TH 02-03 15:30 → OBSVTOIN 02-04 10:42
PROVIDERS: ADMIT Family Medicine; ATTEND Family Medicine
PROC: 5A09357 Assistance with Respiratory Ventilation, Less than 24 Consecutive Hours, Continuous Positive Airway Pressure (ICD-10-PCS; principal; 2023-02-02)
DX: U07.1 COVID-19 (principal); J96.01 Acute respiratory failure with hypoxia; J43.2 Centrilobular emphysema; I25.10 Atherosclerotic heart disease of native coronary artery without angina pectoris; I10 Essential (primary) hypertension; E78.00 Pure hypercholesterolemia, unspecified; F41.9 Anxiety disorder, unspecified; F32.A Depression, unspecified; H54.7 Unspecified visual loss; Z87.891 Personal history of nicotine dependence; Z95.1 Presence of aortocoronary bypass graft; Z79.01 Long term (current) use of anticoagulants; Z79.899 Other long term (current) drug therapy
CPT/HCPCS: 36415; 71045; 71275; 80048; 80053; 80061; 83690; 83735; 83874; 83880; 84484; 85025; 85027; 85610; 85730; 87636; 93005; 93041; 94640; 94660; 94760; G0378